=== PATIENT | female | born 1955 | race Caucasian/White ===

== ENCOUNTER 2021-07-01 09:30 | Day surgery (SDC) | payer BC ==
[~2021-07-01] VITALS: Ht 167.6 cm; Wt 92.3 kg
[~2021-07-01 09:30] MED LIST: ANAFRANIL25 MG PO; HEARTBURN RELI200 MG PO; LIPITOR20 MG; LISINOPRIL10 MG PO; ZYRTEC10 M3 PO
--- NOTE | 2021-07-01 12:48 | NUR ---
07/01/21 1248 Ashia Steward 1241 PT ARRIVED TO PACU WITH 6L O2 IN PLACE. VSS. PT WAKES EASILY AND IS REORIENTED TO PACU. PT DENIES PAIN AND NAUSEA. 1245 O2 REMOVED.
--- NOTE | 2021-07-01 13:22 | NUR ---
AT BEDSIDE. PT RESTING WITH EYES CLOSED. ANSWERS APPROPRIATELY.
[2021-07-01] MEDS ORDERED: HYDROCODON-ACE1 EAC8 PO (13:36)
--- NOTE | 2021-07-01 14:09 | NUR ---
PT RESTING IN BED WATCHING TV WITH SPOUSE AT BEDSIDE. PT EATING CRACKERS AND DRINKING WATER WITH NO COMPLAINTS OF NAUSEA. PT RATES PAIN 1-2/10 IN RIGHT SHOULDER. MADISON DRAIN HAS SCANT AMOUNT OF RED DRAINAGE THAT IS NOT EMPTIED AT THIS TIME. PT ENCOURAGED TO USE CALL LIGHT WITH ANY NEEDS, WITHIN REACH.
--- NOTE | 2021-07-01 15:04 | NUR ---
PT RESTING IN BED WATCHING TV WITH SPOUSE AT BEDSIDE. PT CONT TO DENY ANY PAIN IN RIGHT SHOULDER OR NAUSEA. PT SITS AT SIDE OF BED PRIOR TO STANDING, AMBULATES WITH STEADY GAIT TO BATHROOM WITH RN ASSIST.
--- NOTE | 2021-07-01 15:09 | NUR ---
PT ABLE TO VOID APPROX 400 MLS YELLOW URINE WITH NO PROBLEMS. BACK TO DS RM 6 TO GET DRESSED, ENCOURAGED TO OPEN CURTAIN WHEN FINISHED.
--- NOTE | 2021-07-01 15:35 | NUR ---
1525: LEFT WRIST IV REMOVED WNL, PRESSURE COBAN DRESSING APPLIED. PT ENCOURAGED TO REMOVE PRESSURE DRESSING IN APPROX 10-15 MINUTES. DS INSTRUCTIONS PRESENTED VERBALLY AND WRITTEN TO PT AND SPOUSE WITH PAIN PRESCRIPTION PROVIDED IN DC FOLDER. MADISON DRAIN EDUCATION PROVIDED WITH FLOWSHEET AND SPECIMEN CUP. MADISON DRAIN SAFETY PINNED TO SHIRT. PT DC FROM DS RM 6 VIA WC TO HOME WITH SPOUSE WAITING AT FRONT ENTRANCE OF HOSPITAL IN PERSONAL VEHICLE.
--- NOTE | 2021-07-05 07:29 | OR ---
[facility] [address], [place] [address] Signed DATE OF OPERATION: 07/01/2021 SURGEON: Fer Garcia MD PREOPERATIVE DIAGNOSIS: A 12 cm right anterior shoulder subcutaneous mass. POSTOPERATIVE DIAGNOSIS: A 12 cm right anterior shoulder subcutaneous mass. PROCEDURES: 1. Excision of right anterior shoulder subcutaneous mass. 2. Drain placement (#10-Greek round Linden). ESTIMATED BLOOD LOSS: None. INDICATIONS: Barby is a 65-year-old female, who was asked to see me for a large 12 cm subcutaneous mass over the anterior and somewhat lateral right shoulder. She thinks it has been there for many years. It continues to grow in size. It is now to the point it is rubbing on her bra strap and causing pain. One can easily see the mass underneath her shirt from across the room. She finally went to her primary care provider. An ultrasound and an MRI were performed of this subcutaneous mass. There is internal blood flow. It was recommended a biopsy or excision of this mass will be undertaken. Initially, she saw one of the orthopedic surgeons, who was no longer in our area. She was therefore asked to see me as a general surgeon with respect to the above. In the office, I explained to Barby, this did not appear attached to the underlying muscle. Consequently, I thought we could excise that in the operating room in standard fashion with a radial incision. She understands this will be a day surgery. She will go home afterwards. Due to its location, there is a high likelihood she would have a drain in place to help the skin settle down over the muscle. That overlying skin actually is quite thin. There is risk to the surgery including, but not limited to bleeding, infection, scarring, change in contour of the skin as well as recurrent masses in the same or other locations. There is always the possibility for additional surgery based on pathology results. She had expressed understanding and wished to proceed. DESCRIPTION OF PROCEDURE: I met with Barby and her in the preop area. We all agreed and marked the lesion appropriately. After this, she was taken into the operating room and placed in the Electronically Signed By: FER GARCIA MD 07/05/21 0729 PATIENT NAME: BARBY MARTINEZ OPERATIVE REPORT DATE OF : 51 REPORT #: [id number] PHYSICIAN: FER GARCIA MD PCP: BLANCA MACKAY MD REPORT IS CONFIDENTIAL AND NOT TO BE RELEASED WITHOUT AUTHORIZATION [facility] [address], [place] [address] Signed supine position under general LMA anesthesia. She was given preoperative antibiotics along with subcutaneous heparin. SCDs were utilized. We placed a bump underneath the right shoulder and ribcage and then brought the bed up in reverse Trendelenburg position. She was then prepped and draped in the usual sterile fashion. We made a standard radial incision over the lesion and carried that down and around the lesion bluntly and with the cautery. The main body of the lesion was about 12 cm in length. There were three areas that protruded out to make the length while over 15 cm. The entire lesion was passed off the field for pathologic review. Further undertaken. The wound was irrigated and suctioned out until clear. The overlying skin flaps were quite thin. We did not inject any local near the base of those skin flaps or in the skin flaps themselves. We put a little bit in the muscle over the shoulder. We used a #10 round Linden drain and we brought it through the skin anterior to the shoulder and then circled that around the bottom of the wound. The drain was held in place at the level of skin with a 2-0 nylon suture. We then reapproximated the dermis with interrupted 3-0 subcuticular Monocryl sutures. The skin edges were reapproximated with a running 5-0 fast absorbing plain gut suture. Dry gauze and tape were then applied. Barby was awakened from her anesthesia, extubated in the OR, and taken to recovery room in stable condition. Fer Garcia MD ALB/MODL /[id number] cc: MD Blanca Funes MD Copies: FER GARCIA MD ~ Electronically Signed By: FER GARCIA MD 07/05/21 0729 PATIENT NAME: BARBY MARTINEZ OPERATIVE REPORT DATE OF : 51 REPORT #: [id number] PHYSICIAN: FER GARCIA MD PCP: BLANCA MACKAY MD REPORT IS CONFIDENTIAL AND NOT TO BE RELEASED WITHOUT AUTHORIZATION
== END 2021-07-01 15:30 | disposition home or self-care (01) ==
LOC: DS 09:30
PROVIDERS: ATTEND Colon & Rectal Surgery
PROC: 0JBD0ZZ Excision of Right Upper Arm Subcutaneous Tissue and Fascia, Open Approach (ICD-10-PCS; principal; 2021-07-01 10:15)
DX: R22.31 Localized swelling, mass and lump, right upper limb (principal); I10 Essential (primary) hypertension
CPT/HCPCS: 00400; J0131; J0690; J1100; J1644; J2001; J2405; J2704; J3010; J7121